=== PATIENT | male | born 1960 | race Caucasian/White ===

== ENCOUNTER 2018-07-19 11:49 | Inpatient (IN) | payer BC ==
[~2018-07-19] VITALS: Ht 172.7 cm; Wt 93.0 kg
[~2018-07-19 11:49] MED LIST: Armour Thyroid15 MG PO; Depo-Testos200 MG/ML IM; HYDCHL25 PO; Synthroid125 MCG
[2018-07-19 12:22] LABS: BASOPHILS ABSOLUTE AUTO 0.04 K/mm3 (0.00-0.23); BASOPHILS PERCENT AUTO 0 % (0-2); EOSINOPHILS ABSOLUTE AUTO 0.05 K/mm3 (0.00-0.68); EOSINOPHILS PERCENT AUTO 1 % (0-6); Hemoglobin 15.4 g/dL (13.5-17.5); IMMATURE GRAN ABSOLUTE AUTO 0.03 K/mm3 (0.00-0.10); IMMATURE GRAN PERCENT AUTO 0 % (0-1); LYMPHOCYTES ABSOLUTE AUTO 3.29 K/mm3 (0.84-5.20); LYMPHOCYTES PERCENT AUTO 36 % (21-46); MONOCYTES ABSOLUTE AUTO 0.62 K/mm3 (0.16-1.47); MONOCYTES PERCENT AUTO 7 % (4-13); Mean Corpuscular HGB 28.7 pg (26.0-34.0); Mean Corpuscular HGB Conc 32.8 g/dL (31.5-36.5); Mean Corpuscular Volume 88 fL (80-100); Mean Platelet Volume 8.9 fL (9.1-12.4); NEUTROPHILS ABSOLUTE AUTO 5.15 K/mm3 (1.96-9.15); NEUTROPHILS PERCENT AUTO 56 % (41-73); Platelet Count 233 K/mm3 (150-400); RDW Coefficient Variation 14.6 % (11.7-14.2); RDW Standard Deviation 46.5 fL (35.1-46.3); Red Blood Cell Count 5.36 M/mm3 (4.30-5.90); White Blood Cell Count 9.18 K/mm3 (4.00-11.30)
[2018-07-19 12:31] LABS: Alanine Aminotransfer (ALT/SGP 28 U/L (12-78); Albumin, Blood 3.8 g/dL (3.4-5.0); Albumin/Globulin Ratio 1.2 (0.8-1.8); Alk Phos 70 U/L (50-136); Anion Gap 7 mmol/L (6-16); Aspartate Aminotrans (AST/SGOT 35 U/L (12-37); Bilirubin, Total 0.4 mg/dL (0.1-1.0); Blood Urea Nitrogen 18 mg/dL (8-24); Bun/Creatinine Ratio 15.9 (12.0-20.0); CO2, Blood 27 mmol/L (21-32); Calcium, Blood 8.4 mg/dL (8.5-10.1); Chloride, Blood 106 mmol/L (98-108); Creatinine, Blood 1.13 mg/dL (0.60-1.20); Globulin, Blood 3.2 g/dL (2.2-4.0); Glomerular Filtration Rate >60 (60-); Glucose, Blood 114 mg/dL (70-99); Sodium, Blood 140 mmol/L (136-145)
[2018-07-19 13:00] LABS: Source, Urine Catheter
[2018-07-19 13:07] LABS: Bilirubin, Urine Neg (Neg); Blood, Urine Neg (Neg); Glucose Qualitative, Urine Neg (Neg); Ketones, Urine 1+ (Neg); Leukocyte Esterase, Urine 1+ (Neg); Nitrite, Urine Neg (Neg); Protein, Urine Neg (Neg); Specific Gravity, Urine 1.015 (1.003-1.022); Urobilinogen, Urine NORM (Normal); pH, Urine 6.5 (5.0-8.0)
[2018-07-19 13:22] LABS: Appearance, Urine Clear (Clear); Color, Urine Yellow (P-Yellow)
[2018-07-19 13:24] LABS: Amorphous Light (0-Heavy); Bacteria Few /hpf; Red Blood Cells, Urine 0-2 /hpf (0-2); Squamous Epithelial Cells Not Seen /hpf (Few); White Blood Cells, Urine 0-2 /hpf (0-5)
[2018-07-19] MEDS ORDERED: TAMS.4ER PO ×2 (13:24→14:25)
[2018-07-19] MEDS ORDERED: Hair, Skin & N1 EACH PO ×2 (14:27)
--- NOTE | 2018-07-19 19:20 | NUR ---
SHIFT SUMMARY: C/O MUSCLE SPASMS; 5LBS BUCKS TRACTION APPLIED AND VALIUM GIVEN. TOLERATING TRACTION WELL. OROPEZA CATH IS PATENT/DRAINING. BEDREST. PLAN IS FOR SURGERY TOMORROW. NPO AFTER MN. REPORT GIVEN TO NEXT RN.
--- NOTE | 2018-07-19 19:45 | NUR ---
PT VOMITED VALIUM PO GIVEN PER MD ORDERS. DR. MASON CONTACTED AND ORDERS OBTAINED FOR ZOFRAN AND PHENERGAN. VALIUM WASTED IN PYXIS. VALIUM AND ZOFRAN GIVEN PER MD ORDERS. SAFETY MEASURES IN PLACE, WILL CONTINUE TO MONITOR.
[2018-07-20 05:14] LABS: BASOPHILS ABSOLUTE AUTO 0.02 K/mm3 (0.00-0.23); BASOPHILS PERCENT AUTO 0 % (0-2); EOSINOPHILS ABSOLUTE AUTO 0.01 K/mm3 (0.00-0.68); EOSINOPHILS PERCENT AUTO 0 % (0-6); Hematocrit 42.1 % (37.0-53.0); Hemoglobin 13.9 g/dL (13.5-17.5); IMMATURE GRAN ABSOLUTE AUTO 0.03 K/mm3 (0.00-0.10); IMMATURE GRAN PERCENT AUTO 0 % (0-1); LYMPHOCYTES ABSOLUTE AUTO 2.29 K/mm3 (0.84-5.20); LYMPHOCYTES PERCENT AUTO 19 % (21-46); MONOCYTES ABSOLUTE AUTO 0.99 K/mm3 (0.16-1.47); MONOCYTES PERCENT AUTO 8 % (4-13); Mean Corpuscular HGB 29.1 pg (26.0-34.0); Mean Corpuscular Volume 88 fL (80-100); NEUTROPHILS ABSOLUTE AUTO 8.59 K/mm3 (1.96-9.15); NEUTROPHILS PERCENT AUTO 72 % (41-73); Platelet Count 217 K/mm3 (150-400); RDW Coefficient Variation 14.6 % (11.7-14.2); RDW Standard Deviation 47.2 fL (35.1-46.3); Red Blood Cell Count 4.78 M/mm3 (4.30-5.90); White Blood Cell Count 11.93 K/mm3 (4.00-11.30)
--- NOTE | 2018-07-20 06:06 | NUR ---
NO CHANGES THIS SHIFT. PAIN WELL MANAGED WITH PRN PAIN MEDS. REQUIRED TO READJUST BUCKS TRACTION ONCE DURING SHIFT AFTER PT'S LEG SPASMED AND MATTIE THE RIGHT LEG TO A 45 DEGREE ANGLE AND CAUSED SEVERE DISCOMFORT. DENIES PAIN, DISCOMFORT, OR FURTHER NEEDS AT THIS TIME. SAFETY MEASURES IN PLACE. WILL CONTINUE TO MONITOR.
--- NOTE | 2018-07-20 19:20 | NUR ---
MEDICATED FOR PAIN PER MD ORDERS, SAFETY MEASURES IN PLACE. WILL CONTINUE TO MONITOR.
--- NOTE | 2018-07-20 19:22 | NUR ---
SHIFT SUMMARY PT A&OX4, VSS, R FEMUR FX, 5LB BUCKS TRACTION. PAIN MANAGED WITH 10 MG NORCO AND VALIUM. DENIES N&V, REGGIE PO. OROPEZA PATENT & DRAINING YELLOW URINE. REPORT GIVEN TO DIRK VILLAFNAA.
--- NOTE | 2018-07-21 02:40 | NUR ---
MEDICATED FOR PAIN PER MD ORDERS, SAFETY MEASURES IN PLACE. WILL CONTINUE TO MONITOR.
[2018-07-21 04:46] LABS: BASOPHILS ABSOLUTE AUTO 0.04 K/mm3 (0.00-0.23); BASOPHILS PERCENT AUTO 0 % (0-2); EOSINOPHILS ABSOLUTE AUTO 0.06 K/mm3 (0.00-0.68); EOSINOPHILS PERCENT AUTO 1 % (0-6); Hematocrit 40.8 % (37.0-53.0); Hemoglobin 13.3 g/dL (13.5-17.5); IMMATURE GRAN ABSOLUTE AUTO 0.04 K/mm3 (0.00-0.10); IMMATURE GRAN PERCENT AUTO 0 % (0-1); LYMPHOCYTES ABSOLUTE AUTO 1.72 K/mm3 (0.84-5.20); LYMPHOCYTES PERCENT AUTO 17 % (21-46); MONOCYTES PERCENT AUTO 10 % (4-13); Mean Corpuscular HGB Conc 32.6 g/dL (31.5-36.5); Mean Corpuscular Volume 89 fL (80-100); Mean Platelet Volume 9.1 fL (9.1-12.4); NEUTROPHILS ABSOLUTE AUTO 7.53 K/mm3 (1.96-9.15); NEUTROPHILS PERCENT AUTO 72 % (41-73); Platelet Count 184 K/mm3 (150-400); RDW Coefficient Variation 14.6 % (11.7-14.2); RDW Standard Deviation 47.3 fL (35.1-46.3); Red Blood Cell Count 4.58 M/mm3 (4.30-5.90); White Blood Cell Count 10.39 K/mm3 (4.00-11.30)
--- NOTE | 2018-07-21 04:55 | NUR ---
NO CHANGES THIS SHIFT. PAIN WELL MANAGED WITH PRN PAIN MEDS. SPOUSE VOICES CONCERN ABOUT DELAY IN SURGERY. REASSURED BY NURSING THAT SOON IT IS SAFE FOR THE SURGEONS. DENIES PAIN, DISCOMFORT, OR FURTHER NEEDS AT THIS TIME. SAFETY MEASURES IN PLACE. WILL CONTINUE TO MONITOR.
--- NOTE | 2018-07-21 10:19 | NUR ---
PT LEFT WITH DAYSURG TO GO TO OR FOR SURGERY
--- NOTE | 2018-07-21 12:23 | NUR ---
07/21/18 1223 Robert Rainey PATIENT ARRIVED TO OR WITH OROPEZA CATH IN PLACE DRAINING BINH COLORED URINE
--- NOTE | 2018-07-21 19:07 | NUR ---
SHIFT SUMMARY PT A&OX4, VSS, S/P ORIF R HIP, AQUACEL CDI, WIGGLES TOES/MOVES FEET. REGGIE PO, DENIES N&V AT THIS TIME. PAIN MANAGED PER EMAR. PHYSICAL THERAPY EVAL'D; PLAN FOR 2 PT'S TOMORROW. AT BEDSIDE.
[2018-07-22 05:09] LABS: BASOPHILS ABSOLUTE AUTO 0.01 K/mm3 (0.00-0.23); BASOPHILS PERCENT AUTO 0 % (0-2); EOSINOPHILS PERCENT AUTO 0 % (0-6); Hematocrit 34.4 % (37.0-53.0); Hemoglobin 11.2 g/dL (13.5-17.5); IMMATURE GRAN ABSOLUTE AUTO 0.05 K/mm3 (0.00-0.10); IMMATURE GRAN PERCENT AUTO 0 % (0-1); LYMPHOCYTES ABSOLUTE AUTO 1.69 K/mm3 (0.84-5.20); LYMPHOCYTES PERCENT AUTO 15 % (21-46); MONOCYTES ABSOLUTE AUTO 1.17 K/mm3 (0.16-1.47); MONOCYTES PERCENT AUTO 10 % (4-13); Mean Corpuscular HGB 29.6 pg (26.0-34.0); Mean Corpuscular HGB Conc 32.6 g/dL (31.5-36.5); Mean Corpuscular Volume 91 fL (80-100); Mean Platelet Volume 8.9 fL (9.1-12.4); NEUTROPHILS ABSOLUTE AUTO 8.67 K/mm3 (1.96-9.15); NEUTROPHILS PERCENT AUTO 75 % (41-73); Platelet Count 193 K/mm3 (150-400); RDW Coefficient Variation 14.2 % (11.7-14.2); RDW Standard Deviation 46.9 fL (35.1-46.3); Red Blood Cell Count 3.79 M/mm3 (4.30-5.90); White Blood Cell Count 11.59 K/mm3 (4.00-11.30)
--- NOTE | 2018-07-22 06:21 | NUR ---
NO CHANGES THIS SHIFT. PAIN WELL MANAGED WITH PRN PAIN MEDS. POD #0, S/P RIGHT HIP ORIF WITH TIES. ASSISTED OOB AND TO BSC WITH 2 PERSON ASSIST TO START, IMPROVED TO 1 PERSON ASSIST. DENIES PAIN, DISCOMFORT, OR FURTHER NEEDS AT THIS TIME. SAFETY MEASURES IN PLACE. WILL CONTINUE TO MONITOR.
[2018-07-22] MEDS ORDERED: HYDR1TAB94 PO (14:20)
[2018-07-22] MEDS ORDERED: ASPI325EC PO (14:21)
--- NOTE | 2018-07-22 14:57 | NUR ---
DISCHARGE PT PROVIDED WITH WRITTEN AND VERBAL DISCHARGE INSTRUCTIONS, DRESSINGS, AND EQUIPMENT FOR HOME. DRESSING CHANGED PRIOR TO DISCHARGE. PT EDUCATED ABOUT SIGNS AND SYMPTOMS OF ANEMIA AND EDUCATED TO FOLLOW UP WITH PRIMARY CARE WITHIN 1 WEEK. PT AND ALSO EDUCATED TO CONTACT DR. STRONG'S OFFICE FOR A FOLLOW UP. PT AND SPOUSE REPORTED UNDERSTANDING AFTER DISCHARGE INSTRUCTIONS WERE GIVEN.
== END 2018-07-22 15:00 | disposition home or self-care (01) | DRG 482 ==
LOC: ER 11:49 → SURS 12:21
PROVIDERS: Emergency Medicine; ADMIT Orthopaedic Surgery
PROC: 0QS606Z Reposition Right Upper Femur with Intramedullary Internal Fixation Device, Open Approach (ICD-10-PCS; principal; 2018-07-21 10:00)
DX: S72.21XA Displaced subtrochanteric fracture of right femur, initial encounter for closed fracture (principal); W11.XXXA Fall on and from ladder, initial encounter; N40.0 Benign prostatic hyperplasia without lower urinary tract symptoms; E03.9 Hypothyroidism, unspecified; Z88.8 Allergy status to other drugs, medicaments and biological substances
CPT/HCPCS: 36415; 51702; 71045; 72170; 73551; 73552; 80053; 81001; 85025; 87086; 93005; 93010; 93971; 96374-59; 96375-59; 96376-59; 97110; 97116; 97162; 97165; 97530; 97535; 99285-25; C1713; C1769; J0690; J1100; J1170; J2250; J2405; J2710; J3010; J7030; J7120

== ENCOUNTER → 2018-07-24 | Outpatient (CLI) | payer BC ==
[~2018-07-24] MED LIST changes: +ASPI325EC PO; +HYDR1TAB94 PO; +Hair, Skin & N1 EACH PO; +TAMS.4ER PO
== END | disposition home or self-care (01) ==
LOC: LAB SHORT 18:00 → LAB EV 18:00
DX: R32 Unspecified urinary incontinence (principal)
CPT/HCPCS: 87086

== ENCOUNTER → 2022-03-12 | Outpatient (CLI) | payer BC | LOC: LAB SHORT 11:32 → LAB 11:32 | DX: L72.8 Other follicular cysts of the skin and subcutaneous tissue (principal) | CPT/HCPCS: 88304 ==

== ENCOUNTER → 2024-10-25 | Outpatient (CLI) | payer OTHER | LOC: LAB SHORT 09:08 → LAB 09:08 | DX: B35.1 Tinea unguium (principal) | CPT/HCPCS: 87102; 87220 ==